=== PATIENT | female | born 1990 | race African-American/Black ===

== ENCOUNTER 2016-04-04 21:54 | Emergency (ER) | payer OTHER ==
[~2016-04-04] VITALS: Ht 162.6 cm; Wt 74.4 kg
[~2016-04-04 21:54] MED LIST: APAP500 PO; BACTRIM DS TAB1 EACH PO; CIPROFLOXACIN500 M1 PO; COLACE 100 MG100 MG PO; DERMOPLAST SPRA56 ML; DIFLUCAN150 M1 PO; DOXYCYCLINE 10100 MG PO; FLAGYL500 MG PO; HYDROCORTISONE 01 OZ; IBUPROFEN 600600 M1 PO; IBUPROFEN 800800 MG PO; IRON325 PO; LANOLIN56 GM; LOCOID 0.1% CRE15 GM TP; NOHOMEMEDICATIONS; NORCO 5-325 TA1 EACH PO; PHENAZOPYRIDIN200 M2 PO; PRENATAL; PRENATAL COMPL1 EACH PO; TRAMADOL 50 MG50 MG PO; TUCKS MEDICATE1 EAC1; TYLENOL EX-STR500 M2 PO; ZOFRAN ODT4 MG PO; ZPAK PO
[2016-04-04 21:55] VITALS: BP 124/81
[2016-04-04] MEDS ORDERED: IBUPROFEN 600600 M1 PO (22:33)
[2016-04-04] MEDS ORDERED: TESSALON PERLE100 MG PO (22:33)
[2016-04-04] MEDS ORDERED: FLONASE 0.05%50 MCG NASAL (22:33)
== END 2016-04-04 22:35 | disposition home or self-care (01) ==
LOC: ER 21:54
DX: J06.9 Acute upper respiratory infection, unspecified (principal); R05 Cough

== ENCOUNTER 2016-07-03 11:30 | Emergency (ER) | payer OTHER ==
[~2016-07-03] VITALS: Ht 162.6 cm; Wt 81.7 kg
[~2016-07-03 11:30] MED LIST changes: +FLONASE 0.05%50 MCG NASAL; +TESSALON PERLE100 MG PO
[2016-07-03 11:52] LABS: URINE BILIRUBIN NEGATIVE (Negative); URINE BLOOD NEGATIVE (Negative); URINE COLOR YELLOW; URINE GLUCOSE-RANDOM* NEGATIVE (Negative); URINE KETONES NEGATIVE (Negative); URINE LEUKOCYTES-REFLEX 2+ (Negative); URINE PROTEIN (DIPSTICK) NEGATIVE (Negative); URINE SPECIFIC GRAVITY 1.015 (1.003-1.035); URINE UROBILINOGEN 0.2 E.U./dl (0.2-1.0)
[2016-07-03 12:22] LABS: CASTS None Seen /LPF (None Seen); CRYSTALS None Seen /LPF (None Seen); SQUAMOUS 4-10 Moderate /LPF (0-3); URINE RBC None Seen /HPF (0-2); URINE WBC-REFLEX 6-15 Few /HPF (0-5)
[2016-07-03 12:23] LABS: YEAST-REFLEX Present (None Seen)
[2016-07-03] MEDS ORDERED: BACTRIM DS TAB1 EACH PO (13:48)
[2016-07-03 13:58] VITALS: BP 139/85
[2016-07-03] MEDS ORDERED: DIFLUCAN200 MG PO (14:03)
[2016-07-06 17:10] LABS: CHLAMYDIA TRACHOMATIS-PCR Negative (Negative); NEISSERIA GONORRHEA-PCR Negative (Negative)
== END 2016-07-03 14:07 | disposition home or self-care (01) ==
LOC: ER 11:30
PROVIDERS: Physician Assistant
DX: N89.8 Other specified noninflammatory disorders of vagina (principal); N39.0 Urinary tract infection, site not specified

== ENCOUNTER 2016-07-17 09:25 | Emergency (ER) | payer OTHER ==
[~2016-07-17] VITALS: Ht 162.6 cm; Wt 81.7 kg
[~2016-07-17 09:25] MED LIST changes: +DIFLUCAN200 MG PO
[2016-07-17] MEDS ORDERED: AUGMENTIN 875-1 EACH PO (09:53)
[2016-07-17] MEDS ORDERED: NORCO 5-325 TA1 EACH PO (09:53)
[2016-07-17 10:18] VITALS: BP 119/64
== END 2016-07-17 10:21 | disposition home or self-care (01) ==
LOC: ER 09:25
DX: S61.052A Open bite of left thumb without damage to nail, initial encounter (principal); S00.81XA Abrasion of other part of head, initial encounter; Y04.1XXA Assault by human bite, initial encounter

== ENCOUNTER 2017-03-09 15:49 | Emergency (ER) | payer OTHER ==
[~2017-03-09] VITALS: Ht 162.6 cm; Wt 68.0 kg
[~2017-03-09 15:49] MED LIST changes: +AUGMENTIN 875-1 EACH PO
[2017-03-09 15:53] VITALS: BP 118/76
[2017-03-09 16:25] LABS: URINE BILIRUBIN NEGATIVE (Negative); URINE BLOOD 3+ (Negative); URINE COLOR YELLOW; URINE GLUCOSE-RANDOM* NEGATIVE (Negative); URINE KETONES NEGATIVE (Negative); URINE NITRITE NEGATIVE (Negative); URINE PROTEIN (DIPSTICK) NEGATIVE (Negative); URINE SPECIFIC GRAVITY <= 1.005 (1.005-1.035); URINE UROBILINOGEN 0.2 E.U./dl (0.2-1.0)
[2017-03-09 16:32] LABS: CASTS None Seen /LPF (None Seen); CRYSTALS None Seen /LPF (None Seen); SQUAMOUS >10 Many /LPF (0-3)
[2017-03-09 16:33] LABS: URINE RBC >20 Many /HPF (0-2); URINE WBC 0-5 Rare /HPF (0-5)
== END 2017-03-09 16:58 | disposition home or self-care (01) ==
LOC: ER 15:49
PROVIDERS: Physician Assistant
DX: Z20.2 Contact with and (suspected) exposure to infections with a predominantly sexual mode of transmission (principal); R19.7 Diarrhea, unspecified; Z71.1 Person with feared health complaint in whom no diagnosis is made

== ENCOUNTER 2017-04-09 18:19 | Emergency (ER) | payer OTHER ==
[~2017-04-09] VITALS: Ht 154.9 cm; Wt 68.0 kg
[2017-04-09 18:49] LABS: URINE BILIRUBIN NEGATIVE (Negative); URINE BLOOD NEGATIVE (Negative); URINE CLARITY CLEAR; URINE COLOR YELLOW; URINE GLUCOSE-RANDOM* NEGATIVE (Negative); URINE KETONES NEGATIVE (Negative); URINE LEUKOCYTES TRACE (Negative); URINE NITRITE NEGATIVE (Negative); URINE PROTEIN (DIPSTICK) NEGATIVE (Negative); URINE UROBILINOGEN 0.2 E.U./dl (0.2-1.0)
[2017-04-09] MEDS ORDERED: DOXYCYCLINE 10100 MG PO (19:34)
== END 2017-04-09 19:41 | disposition home or self-care (01) ==
LOC: ER 18:19
PROVIDERS: Physician Assistant
DX: Z20.2 Contact with and (suspected) exposure to infections with a predominantly sexual mode of transmission (principal); N89.8 Other specified noninflammatory disorders of vagina

== ENCOUNTER 2017-06-21 11:40 | Emergency (ER) | payer OTHER ==
[~2017-06-21] VITALS: Ht 162.6 cm; Wt 7.3 kg
[2017-06-21 12:19] LABS: URINE BILIRUBIN NEGATIVE (Negative); URINE BLOOD 2+ (Negative); URINE CLARITY CLEAR; URINE COLOR YELLOW; URINE GLUCOSE-RANDOM* NEGATIVE (Negative); URINE KETONES NEGATIVE (Negative); URINE LEUKOCYTES NEGATIVE (Negative); URINE NITRITE NEGATIVE (Negative); URINE PROTEIN (DIPSTICK) NEGATIVE (Negative); URINE SPECIFIC GRAVITY 1.025 (1.005-1.035); URINE UROBILINOGEN 0.2 E.U./dl (0.2-1.0)
[2017-06-21 12:31] LABS: CASTS None Seen /LPF (None Seen); CRYSTALS None Seen /LPF (None Seen); SQUAMOUS >10 Many /LPF (0-3)
[2017-06-21 12:32] LABS: BACTERIA 1-9 Few /HPF (None Seen); MUCUS 0-3 Light strn/LPF (None Seen)
[2017-06-21 12:33] LABS: URINE RBC 0-2 Rare /HPF (0-2); URINE WBC 0-5 Rare /HPF (0-5)
[2017-06-21] MEDS ORDERED: DOXYCYCLINE 10100 MG PO ×2 (13:50→14:41)
[2017-06-21] MEDS ORDERED: ULTRAM 50MG TAB50 MG PO ×2 (13:50→14:41)
[2017-06-21] MEDS ORDERED: BENADRYL25 MG PO ×2 (13:50→14:41)
[2017-06-21 14:49] VITALS: BP 104/63
[2017-06-22 14:15] LABS: NEISSERIA GONORRHEA-PCR Negative (Negative)
== END 2017-06-21 14:50 | disposition home or self-care (01) ==
LOC: ER 11:40
PROVIDERS: Emergency Medicine
DX: N76.0 Acute vaginitis (principal); Z88.1 Allergy status to other antibiotic agents

== ENCOUNTER 2017-07-10 09:02 | Emergency (ER) | payer OTHER ==
[~2017-07-10] VITALS: Ht 162.6 cm; Wt 72.6 kg
[~2017-07-10 09:02] MED LIST changes: +BENADRYL25 MG PO; +ULTRAM 50MG TAB50 MG PO
[2017-07-10 09:25] VITALS: BP 132/78
[2017-07-10 09:33] LABS: URINE BILIRUBIN NEGATIVE (Negative); URINE BLOOD NEGATIVE (Negative); URINE CLARITY CLEAR; URINE COLOR YELLOW; URINE GLUCOSE-RANDOM* NEGATIVE (Negative); URINE KETONES NEGATIVE (Negative); URINE LEUKOCYTES-REFLEX NEGATIVE (Negative); URINE NITRITE-REFLEX NEGATIVE (Negative); URINE PROTEIN (DIPSTICK) NEGATIVE (Negative); URINE UROBILINOGEN 0.2 E.U./dl (0.2-1.0)
[2017-07-10] MEDS ORDERED: PREDNISONE 20 M20 MG PO (10:17)
[2017-07-10] MEDS ORDERED: VAGICAINE CREAM28 GM TOP (10:17)
[2017-07-10] MEDS ORDERED: DIFLUCAN200 MG PO (10:17)
[2017-07-12 14:10] LABS: NEISSERIA GONORRHEA-PCR Negative (Negative)
== END 2017-07-10 10:15 | disposition home or self-care (01) ==
LOC: ER 09:02
PROVIDERS: Physician Assistant
DX: B37.3 Candidiasis of vulva and vagina (principal); Z88.1 Allergy status to other antibiotic agents

== ENCOUNTER 2017-09-05 22:58 | Emergency (ER) | payer OTHER ==
[~2017-09-05] VITALS: Ht 152.4 cm; Wt 81.8 kg
[~2017-09-05 22:58] MED LIST changes: +PREDNISONE 20 M20 MG PO; +VAGICAINE CREAM28 GM TOP
[2017-09-05 23:16] LABS: URINE BILIRUBIN NEGATIVE (Negative); URINE BLOOD 3+ (Negative); URINE CLARITY CLEAR; URINE COLOR YELLOW; URINE GLUCOSE-RANDOM* NEGATIVE (Negative); URINE KETONES NEGATIVE (Negative); URINE LEUKOCYTES 1+ (Negative); URINE NITRITE NEGATIVE (Negative); URINE PROTEIN (DIPSTICK) NEGATIVE (Negative); URINE SPECIFIC GRAVITY >= 1.030 (1.005-1.035); URINE UROBILINOGEN 0.2 E.U./dl (0.2-1.0)
[2017-09-05 23:32] LABS: MUCUS 0-3 Light strn/LPF (None Seen); SQUAMOUS >10 Many /LPF (0-3)
[2017-09-05 23:33] LABS: BACTERIA >30 Many /HPF (None Seen); CASTS None Seen /LPF (None Seen); CRYSTALS None Seen /LPF (None Seen); URINE RBC 3-10 Few /HPF (0-2); URINE WBC 0-5 Rare /HPF (0-5)
[2017-09-05] MEDS ORDERED: FLAGYL500 MG PO (23:48)
[2017-09-06 00:07] VITALS: BP 119/63
== END 2017-09-06 00:05 | disposition home or self-care (01) ==
LOC: ER 22:58
PROVIDERS: Emergency Medicine
DX: N89.8 Other specified noninflammatory disorders of vagina (principal); R21 Rash and other nonspecific skin eruption; Z88.1 Allergy status to other antibiotic agents

== ENCOUNTER 2018-01-24 13:41 | Emergency (ER) | payer OTHER ==
[~2018-01-24] VITALS: Ht 162.6 cm; Wt 83.0 kg
[2018-01-24 14:08] LABS: URINE BILIRUBIN NEGATIVE (Negative); URINE BLOOD 3+ (Negative); URINE COLOR YELLOW; URINE GLUCOSE-RANDOM* NEGATIVE (Negative); URINE KETONES NEGATIVE (Negative); URINE LEUKOCYTES NEGATIVE (Negative); URINE NITRITE NEGATIVE (Negative); URINE PROTEIN (DIPSTICK) 1+ (Negative); URINE SPECIFIC GRAVITY >= 1.030 (1.005-1.035); URINE UROBILINOGEN 0.2 E.U./dl (0.2-1.0)
[2018-01-24 14:09] LABS: URINE CLARITY HAZY
[2018-01-24 14:18] LABS: BACTERIA None Seen /HPF (None Seen); CASTS None Seen /LPF (None Seen); CRYSTALS None Seen /LPF (None Seen); SQUAMOUS 4-10 Moderate /LPF (0-3); URINE RBC >20 Many /HPF (0-2)
[2018-01-24] MEDS ORDERED: FLAGYL500 MG PO (15:16)
== END 2018-01-24 15:22 | disposition home or self-care (01) ==
LOC: ER 13:41
PROVIDERS: Nurse Practitioner
DX: N76.0 Acute vaginitis (principal); B96.89 Other specified bacterial agents as the cause of diseases classified elsewhere; Z88.1 Allergy status to other antibiotic agents

== ENCOUNTER 2018-02-20 15:21 | Emergency (ER) | payer OTHER ==
[~2018-02-20] VITALS: Ht 162.6 cm; Wt 83.0 kg
[2018-02-20 16:15] LABS: URINE BILIRUBIN NEGATIVE (Negative); URINE BLOOD 2+ (Negative); URINE CLARITY CLEAR; URINE COLOR YELLOW; URINE GLUCOSE-RANDOM* NEGATIVE (Negative); URINE KETONES NEGATIVE (Negative); URINE LEUKOCYTES-REFLEX NEGATIVE (Negative); URINE NITRITE-REFLEX NEGATIVE (Negative); URINE PROTEIN (DIPSTICK) NEGATIVE (Negative); URINE SPECIFIC GRAVITY 1.025 (1.005-1.035); URINE UROBILINOGEN 0.2 E.U./dl (0.2-1.0)
[2018-02-20 16:21] LABS: BACTERIA-REFLEX None Seen /HPF (None Seen); CASTS None Seen /LPF (None Seen); CRYSTALS None Seen /LPF (None Seen); MUCUS 4-6 Moderate strn/LPF (None Seen); SQUAMOUS >10 Many /LPF (0-3); URINE WBC-REFLEX None Seen /HPF (0-5)
[2018-02-20] MEDS ORDERED: FLAGYL500 M1 PO (16:31)
[2018-02-20 17:17] VITALS: BP 127/64
== END 2018-02-20 18:04 | disposition home or self-care (01) ==
LOC: ER 15:21
PROVIDERS: Emergency Medicine
DX: N76.0 Acute vaginitis (principal); Z88.1 Allergy status to other antibiotic agents

== ENCOUNTER 2018-03-01 16:21 | Emergency (ER) | payer OTHER ==
[~2018-03-01] VITALS: Ht 162.6 cm; Wt 83.9 kg
[~2018-03-01 16:21] MED LIST changes: +FLAGYL500 M1 PO
[2018-03-01 18:00] VITALS: BP 122/44
== END 2018-03-01 18:00 | disposition home or self-care (01) ==
LOC: ER 16:21
DX: H93.12 Tinnitus, left ear (principal); Z88.1 Allergy status to other antibiotic agents; V49.9XXA Car occupant (driver) (passenger) injured in unspecified traffic accident, initial encounter; Y93.89 Activity, other specified; Y92.89 Other specified places as the place of occurrence of the external cause; Y99.8 Other external cause status

== ENCOUNTER 2018-03-31 14:25 | Emergency (ER) | payer OTHER ==
[~2018-03-31] VITALS: Ht 162.6 cm; Wt 81.7 kg
[2018-03-31 15:08] LABS: URINE CLARITY CLEAR; URINE COLOR YELLOW; URINE SPECIFIC GRAVITY > 1.030 (1.005-1.035)
[2018-03-31 15:09] LABS: URINE BILIRUBIN NEGATIVE (Negative); URINE BLOOD NEGATIVE (Negative); URINE GLUCOSE-RANDOM* NEGATIVE (Negative); URINE KETONES TRACE (Negative); URINE LEUKOCYTES-REFLEX TRACE (Negative); URINE NITRITE-REFLEX NEGATIVE (Negative); URINE PROTEIN (DIPSTICK) NEGATIVE (Negative); URINE UROBILINOGEN 0.2 E.U./dl (0.2-1.0)
[2018-03-31] MEDS ORDERED: ZOFRAN8 MG PO (15:29)
[2018-03-31] MEDS ORDERED: PRILOSEC 20 MG20 MG PO (15:29)
[2018-03-31 16:06] LABS: HEMATOCRIT 41.7 % (37.0-47.0); HEMOGLOBIN 14.4 gm/dL (12.0-15.0); MCHC 34.4 g/dL (28.0-37.0); MCV 90.1 fL (80.0-100.0); RBC 4.63 mil/uL (4.20-5.00); WBC 6.5 thou/uL (4.0-11.0)
[2018-03-31 16:20] LABS: CALCIUM 8.9 mg/dL (8.5-10.1); POTASSIUM 3.9 mmol/L (3.5-5.1)
[2018-03-31 16:25] LABS: TOTAL BILIRUBIN 0.3 mg/dL (<0.1-1.0); TOTAL PROTEIN 8.1 g/dL (6.4-8.2)
[2018-03-31 17:45] VITALS: BP 122/79
== END 2018-03-31 17:46 | disposition home or self-care (01) ==
LOC: ER 14:25
PROVIDERS: Emergency Medicine
DX: R19.7 Diarrhea, unspecified (principal); K21.9 Gastro-esophageal reflux disease without esophagitis; Z88.1 Allergy status to other antibiotic agents

== ENCOUNTER 2018-04-06 09:11 | Emergency (ER) | payer OTHER ==
[~2018-04-06] VITALS: Ht 162.6 cm; Wt 78.5 kg
[~2018-04-06 09:11] MED LIST changes: +PRILOSEC 20 MG20 MG PO; +ZOFRAN8 MG PO
[2018-04-06] MEDS ORDERED: CIPRO500 MG PO (09:49)
[2018-04-06] MEDS ORDERED: FLAGYL500 M1 PO (09:49)
[2018-04-06 10:02] VITALS: BP 120/72
== END 2018-04-06 10:02 | disposition home or self-care (01) ==
LOC: ER 09:11
DX: R19.7 Diarrhea, unspecified (principal); Z88.1 Allergy status to other antibiotic agents

== ENCOUNTER 2018-04-29 15:56 | Emergency (ER) | payer OTHER ==
[~2018-04-29] VITALS: Ht 162.6 cm; Wt 80.3 kg
[~2018-04-29 15:56] MED LIST changes: +CIPRO500 MG PO
[2018-04-29 16:33] LABS: URINE BILIRUBIN NEGATIVE (Negative); URINE BLOOD NEGATIVE (Negative); URINE CLARITY CLEAR; URINE COLOR YELLOW; URINE GLUCOSE-RANDOM* NEGATIVE (Negative); URINE KETONES NEGATIVE (Negative); URINE LEUKOCYTES-REFLEX NEGATIVE (Negative); URINE NITRITE-REFLEX NEGATIVE (Negative); URINE PROTEIN (DIPSTICK) NEGATIVE (Negative); URINE SPECIFIC GRAVITY >= 1.030 (1.005-1.035); URINE UROBILINOGEN 0.2 E.U./dl (0.2-1.0)
[2018-04-29] MEDS ORDERED: ACYCLOVIR 400400 MG PO (18:02)
[2018-04-29] MEDS ORDERED: DOXYCYCLINE 10100 MG PO (18:02)
[2018-04-29] MEDS ORDERED: VALTREX 500 MG500 M1 PO (18:34)
[2018-04-29 18:38] VITALS: BP 132/74
== END 2018-04-29 18:40 | disposition home or self-care (01) ==
LOC: ER 15:56
PROVIDERS: Nurse Practitioner Family
DX: A60.04 Herpesviral vulvovaginitis (principal); N72 Inflammatory disease of cervix uteri; N76.0 Acute vaginitis; Z88.1 Allergy status to other antibiotic agents

== ENCOUNTER 2018-06-07 09:34 | Emergency (ER) | payer OTHER ==
[~2018-06-07] VITALS: Ht 162.6 cm; Wt 81.7 kg
[~2018-06-07 09:34] MED LIST changes: +ACYCLOVIR 400400 MG PO; +VALTREX 500 MG500 M1 PO
[2018-06-07 09:50] LABS: URINE BILIRUBIN NEGATIVE (Negative); URINE BLOOD NEGATIVE (Negative); URINE CLARITY SL CLOUDY; URINE COLOR YELLOW; URINE GLUCOSE-RANDOM* NEGATIVE (Negative); URINE KETONES NEGATIVE (Negative); URINE LEUKOCYTES-REFLEX NEGATIVE (Negative); URINE NITRITE-REFLEX NEGATIVE (Negative); URINE PROTEIN (DIPSTICK) NEGATIVE (Negative); URINE SPECIFIC GRAVITY >= 1.030 (1.005-1.035); URINE UROBILINOGEN 0.2 E.U./dl (0.2-1.0)
[2018-06-07] MEDS ORDERED: NAPROSYN500 MG PO (10:19)
[2018-06-07] MEDS ORDERED: NORFLEX100 MG PO (10:19)
[2018-06-07 10:35] VITALS: BP 128/64
== END 2018-06-07 10:36 | disposition home or self-care (01) ==
LOC: ER 09:34
PROVIDERS: Emergency Medicine
DX: S29.012A Strain of muscle and tendon of back wall of thorax, initial encounter (principal); Z88.1 Allergy status to other antibiotic agents; X58.XXXA Exposure to other specified factors, initial encounter; Y93.89 Activity, other specified; Y92.89 Other specified places as the place of occurrence of the external cause; Y99.8 Other external cause status

== ENCOUNTER 2018-06-11 18:06 | Emergency (ER) | payer OTHER ==
[~2018-06-11] VITALS: Ht 162.6 cm; Wt 81.7 kg
[~2018-06-11 18:06] MED LIST changes: +NAPROSYN500 MG PO; +NORFLEX100 MG PO
[2018-06-11 18:25] LABS: URINE BILIRUBIN NEGATIVE (Negative); URINE BLOOD TRACE (Negative); URINE CLARITY CLEAR; URINE COLOR YELLOW; URINE GLUCOSE-RANDOM* NEGATIVE (Negative); URINE KETONES NEGATIVE (Negative); URINE LEUKOCYTES-REFLEX NEGATIVE (Negative); URINE NITRITE-REFLEX NEGATIVE (Negative); URINE PROTEIN (DIPSTICK) NEGATIVE (Negative); URINE SPECIFIC GRAVITY >= 1.030 (1.005-1.035); URINE UROBILINOGEN 0.2 E.U./dl (0.2-1.0)
[2018-06-11] MEDS ORDERED: VALACYCLOVIR1000 MG PO (19:35)
[2018-06-11 20:02] VITALS: BP 134/78
== END 2018-06-11 20:02 | disposition home or self-care (01) ==
LOC: ER 18:06
PROVIDERS: Physician Assistant
DX: A60.00 Herpesviral infection of urogenital system, unspecified (principal); Z88.1 Allergy status to other antibiotic agents

== ENCOUNTER 2018-08-01 13:01 | Emergency (ER) | payer OTHER ==
[~2018-08-01] VITALS: Ht 162.6 cm; Wt 86.2 kg
[~2018-08-01 13:01] MED LIST changes: +VALACYCLOVIR1000 MG PO
[2018-08-01 15:10] LABS: URINE BILIRUBIN NEGATIVE (Negative); URINE BLOOD NEGATIVE (Negative); URINE CLARITY CLEAR; URINE COLOR YELLOW; URINE GLUCOSE-RANDOM* NEGATIVE (Negative); URINE KETONES NEGATIVE (Negative); URINE LEUKOCYTES-REFLEX TRACE (Negative); URINE NITRITE-REFLEX NEGATIVE (Negative); URINE PROTEIN (DIPSTICK) NEGATIVE (Negative); URINE UROBILINOGEN 0.2 E.U./dl (0.2-1.0)
[2018-08-01 15:33] VITALS: BP 145/75
== END 2018-08-01 15:33 | disposition home or self-care (01) ==
LOC: ER 13:01
PROVIDERS: Physician Assistant
DX: N89.8 Other specified noninflammatory disorders of vagina (principal); Z88.1 Allergy status to other antibiotic agents

== ENCOUNTER 2018-12-15 19:00 | Emergency (ER) | payer OTHER ==
[~2018-12-15] VITALS: Ht 162.6 cm; Wt 81.7 kg
[2018-12-15] MEDS ORDERED: NOHOMEMEDICATIONS (19:04)
[2018-12-15 19:40] LABS: URINE BILIRUBIN NEGATIVE (Negative); URINE BLOOD NEGATIVE (Negative); URINE CLARITY CLEAR; URINE COLOR YELLOW; URINE GLUCOSE-RANDOM* NEGATIVE (Negative); URINE KETONES NEGATIVE (Negative); URINE LEUKOCYTES NEGATIVE (Negative); URINE NITRITE NEGATIVE (Negative); URINE PROTEIN (DIPSTICK) NEGATIVE (Negative); URINE SPECIFIC GRAVITY <= 1.005 (1.005-1.035); URINE UROBILINOGEN 0.2 E.U./dl (0.2-1.0)
[2018-12-15 20:43] LABS: ABSOLUTE NEUTROPHILS 3.8 thou/uL (1.4-8.2); BASOPHILS 0.9 % (0.0-2.0); EOSINOPHILS 2.3 % (0.0-3.0); HEMATOCRIT 32.1 % (37.0-47.0); HEMOGLOBIN 10.7 gm/dL (12.0-15.0); LYMPHOCYTES 32.7 % (24.0-44.0); MCH 28.5 pg (26.0-34.0); MCHC 33.2 g/dL (28.0-37.0); MCV 85.9 fL (80.0-100.0); PLATELET COUNT 317 thou/uL (150-400); POLYS 55.1 % (36.0-66.0); RBC 3.74 mil/uL (4.20-5.00); RDW 16.3 % (10.5-14.5); WBC 6.9 thou/uL (4.0-11.0)
[2018-12-15 20:52] LABS: ANION GAP 9 mmol/L (7-16); BUN 11 mg/dL (7-18); CALCIUM 9.8 mg/dL (8.5-10.1); CHLORIDE 103 mmol/L (98-107); CO2 27 mmol/L (21-32); CREATININE 0.9 mg/dL (0.6-1.0); GLUCOSE 91 mg/dL (74-106); POTASSIUM 3.4 mmol/L (3.5-5.1); SODIUM 139 mmol/L (136-145)
[2018-12-15 20:57] LABS: ALBUMIN 3.4 g/dL (3.4-5.0); LIPASE 231 U/L (73-393); SGOT 11 U/L (15-37); SGPT 14 U/L (30-65); TOTAL BILIRUBIN < 0.1 mg/dL (<0.1-1.0); TOTAL PROTEIN 7.3 g/dL (6.4-8.2)
[2018-12-15] MEDS ORDERED: PRENATAL PO (21:24)
[2018-12-15 22:01] VITALS: BP 110/59
== END 2018-12-15 22:02 | disposition home or self-care (01) ==
LOC: ER 19:00
PROVIDERS: Physician Assistant
DX: O99.281 Endocrine, nutritional and metabolic diseases complicating pregnancy, first trimester (principal); E87.6 Hypokalemia; O99.011 Anemia complicating pregnancy, first trimester; O26.891 Other specified pregnancy related conditions, first trimester; R10.2 Pelvic and perineal pain; R51 Headache; Z88.1 Allergy status to other antibiotic agents; Z3A.08 8 weeks gestation of pregnancy

== ENCOUNTER 2020-12-17 12:39 | Emergency (ER) | payer OTHER ==
[~2020-12-17] VITALS: Ht 160 cm; Wt 93.9 kg
[~2020-12-17 12:39] MED LIST changes: +PRENATAL PO
[2020-12-17] MEDS ORDERED: DOXYCYCLINE 10100 MG PO (14:21)
[2020-12-17 14:35] LABS: URINE BLOOD NEGATIVE (Negative); URINE CLARITY CLOUDY; URINE COLOR YELLOW; URINE GLUCOSE-RANDOM* NEGATIVE (Negative); URINE KETONES TRACE (Negative); URINE LEUKOCYTES-REFLEX TRACE (Negative); URINE PROTEIN (DIPSTICK) NEGATIVE (Negative); URINE SPECIFIC GRAVITY 1.025 (1.005-1.035)
[2020-12-17 14:36] LABS: ICTOTEST (BILI CONFIRMATORY) Negative (Negative); URINE BILIRUBIN NEGATIVE (Negative); URINE NITRITE-REFLEX POSITIVE (Negative)
[2020-12-17] MEDS ORDERED: CEPHALEXIN500 MG PO (14:45)
[2020-12-17 14:46] LABS: AMORPHOUS URATES Many /LPF (None Seen); CASTS None Seen /LPF (None Seen); SQUAMOUS None Seen /LPF (0-3); URINE RBC None Seen /HPF (NONE SEEN); URINE WBC-REFLEX 0-5 Rare /HPF (0-5)
== END 2020-12-17 14:46 | disposition home or self-care (01) ==
LOC: ER 12:39
PROVIDERS: Nurse Practitioner
DX: N39.0 Urinary tract infection, site not specified (principal); Z20.2 Contact with and (suspected) exposure to infections with a predominantly sexual mode of transmission; Z88.1 Allergy status to other antibiotic agents

== ENCOUNTER 2021-02-18 11:39 | Emergency (ER) | payer OTHER ==
[~2021-02-18] VITALS: Ht 160 cm; Wt 93.9 kg
[~2021-02-18 11:39] MED LIST changes: +CEPHALEXIN500 MG PO
[2021-02-18 12:01] VITALS: BP 132/81
[2021-02-18] MEDS ORDERED: CEPHALEXIN500 MG PO (12:41)
== END 2021-02-18 13:24 | disposition home or self-care (01) ==
LOC: ER 11:39
DX: B01.9 Varicella without complication (principal); R21 Rash and other nonspecific skin eruption; Z98.890 Other specified postprocedural states; Z88.1 Allergy status to other antibiotic agents

== ENCOUNTER 2021-03-12 21:09 | Emergency (ER) | payer OTHER ==
[2021-03-12 22:33] VITALS: BP 137/70
== END 2021-03-12 22:34 | disposition home or self-care (01) ==
LOC: ER 21:09
PROVIDERS: Physician Assistant
DX: Z20.822 Contact with and (suspected) exposure to COVID-19 (principal); Z98.890 Other specified postprocedural states; Z79.899 Other long term (current) drug therapy; Z88.1 Allergy status to other antibiotic agents